=== PATIENT | male | born 1995 | race Caucasian/White ===

== ENCOUNTER 2021-04-02 13:06 | Emergency (ER) | payer BC ==
--- NOTE | 2021-04-02 13:41 | ER ---
Nurse's Notes [facility] Name: Hipolito Montiel Age: 25 yrs Sex: Male : 1995 Arrival Date: 04/02/2021 Time: 13:10 Bed 14 Private MD: Diagnosis: Rash and other nonspecific skin eruption-left hand and left upper arm Presentation: 04/02 13:15 Chief complaint: Patient states: Patient states he burned his left hand with hot coffee ae4 6 days prior and now he has a rash in various places on left hand and left arm. Coronavirus screen: Client denies travel out of the [place] in the last 14 days. At this time, the client does not indicate any symptoms associated with coronavirus-19. Ebola Screen: Patient negative for fever greater than or equal to 101.5 degrees Fahrenheit, and additional compatible Ebola Virus Disease symptoms No symptoms or risks identified at this time. Initial Sepsis Screen: Does the patient meet any 2 criteria? No. Patient's initial sepsis screen is negative. Does the patient have a suspected source of infection? No. Patient's initial sepsis screen is negative. Risk Assessment: Do you want to hurt yourself or someone else? Patient reports no desire to harm self or others. 13:15 Method Of Arrival: Ambulatory ae4 13:15 Acuity: DIOGO 4 ae4 Triage Assessment: 13:18 General: Appears in no apparent distress. comfortable, Behavior is calm, cooperative. ae4 Pain: Complains of pain in left hand and left arm Pain currently is 3 out of 10 on a pain scale. Neuro: Level of Consciousness is awake, alert, obeys commands. Respiratory: Airway is patent Respiratory effort is even, unlabored, Respiratory pattern is regular, symmetrical. Derm: Mild redness on all fingers of left hand. redness and small lesions on left upper arm, just superior to left elbow. Historical: - Allergies: 13:18 No Known Allergies; ae4 - Home Meds: 13:18 None [Active]; ae4 - PMHx: 13:18 None; ae4 - PSHx: 13:18 Hernia repair; ae4 - Immunization history:: Adult Immunizations Client reports receiving the 2nd dose of the Covid vaccine, Date received: March 12, 2021 Last tetanus immunization: unknown. - Social history:: Smoking status: Patient denies any tobacco usage or history of. Assessment: 13:53 Reassessment: Patient appears in no apparent distress at this time. see triage tr6 assessment. Vital Signs: 13:15 BP 156 / 97; Pulse 75; Resp 16; Temp 98(TE); Pulse Ox 98% on R/A; Weight 81.65 kg; ae4 Height 5 ft. 8 in. (172.72 cm); Pain 3/10; 13:21 BP 143 / 94; Pulse 81; Resp 17 S; Pulse Ox 98% ; ae4 13:15 Body Mass Index 27.37 (81.65 kg, 172.72 cm) ae4 ED Course: 13:10 Patient arrived in ED. ds1 13:18 Triage completed. ae4 13:22 Arm band placed on right wrist. ae4 13:25 Crispin Estrada PA is PHCP. cp 13:25 Ave Davis MD is Attending Physician. cp 13:53 Nayla Roberts RN is Primary Nurse. tr6 13:54 Patient has correct armband on for positive identification. Bed in low position. Call tr6 light in reach. Side rails up X 1. Administered Medications: No medications were administered Outcome: 13:41 Discharge ordered by MD. cp 13:54 Patient left the ED. tr6 Signatures: Morena Mora ds1 Crispin Estrada PA PA cp Angel Marquez RN RN ae4 Nayla Roberts, DAJA RN tr6
--- NOTE | 2021-04-02 13:41 | EDPHYS ---
Physician Documentation [facility] Name: Hipolito Montiel Age: 25 yrs Sex: Male : 1995 Arrival Date: 04/02/2021 Time: 13:10 Bed 14 Private MD: ED Physician Ave Davis HPI: 04/02 13:30 This 25 yrs old Male presents to ER via Ambulatory with complaints of Rash. cp 13:30 The patient's rash thought to be caused by an unknown cause. The rash is located on the cp left hand and left upper arm. Onset: The symptoms/episode began/occurred 3 day(s) ago. 13:30 Associated signs and symptoms: Pertinent negatives: difficulty breathing, fever, cp itching, intermittent burning. Historical: - Allergies: 13:18 No Known Allergies; ae4 - Home Meds: 13:18 None [Active]; ae4 - PMHx: 13:18 None; ae4 - PSHx: 13:18 Hernia repair; ae4 - Immunization history:: Adult Immunizations Client reports receiving the 2nd dose of the Covid vaccine, Date received: March 12, 2021 Last tetanus immunization: unknown. - Social history:: Smoking status: Patient denies any tobacco usage or history of. ROS: 13:35 Constitutional: Negative for body aches, chills, fever, poor PO intake. cp 13:35 Cardiovascular: Negative for chest pain. cp 13:35 Respiratory: Negative for cough, shortness of breath, wheezing. 13:35 Abdomen/GI: Negative for abdominal pain, nausea, vomiting, and diarrhea. 13:35 Skin: Positive for rash, of the left hand and left arm. 13:35 Neuro: Negative for altered mental status, headache, numbness. 13:35 All other systems are negative. Exam: 13:37 Constitutional: The patient appears in no acute distress, alert, awake, comfortable, cp non-toxic, well developed, well nourished. 13:37 Head/Face: Normocephalic, atraumatic. cp 13:37 Chest/axilla: Inspection: normal. 13:37 Cardiovascular: Rate: normal, Rhythm: regular. 13:37 Respiratory: the patient does not display signs of respiratory distress, Respirations: normal, no use of accessory muscles, no retractions, labored breathing, is not present. 13:37 Skin: rash can be described as nonspecific, on the left hand and lateral mid upper arm. Vital Signs: 13:15 BP 156 / 97; Pulse 75; Resp 16; Temp 98(TE); Pulse Ox 98% on R/A; Weight 81.65 kg; ae4 Height 5 ft. 8 in. (172.72 cm); Pain 3/10; 13:21 BP 143 / 94; Pulse 81; Resp 17 S; Pulse Ox 98% ; ae4 13:15 Body Mass Index 27.37 (81.65 kg, 172.72 cm) ae4 MDM: 13:29 Patient medically screened. cp 13:40 Data reviewed: vital signs, nurses notes. cp 13:40 Differential diagnosis: varicella, allergic reaction, cellulitis, abscess. Counseling: cp I had a detailed discussion with the patient and/or guardian regarding: the historical points, exam findings, and any diagnostic results supporting the discharge/admit diagnosis, to return to the emergency department if symptoms worsen or persist or if there are any questions or concerns that arise at home. Administered Medications: No medications were administered Disposition: 13:55 Chart complete. cp Disposition: 04/02/21 13:41 Discharged to Home. Impression: Rash and other nonspecific skin eruption - left hand and left upper arm. - Condition is Stable. - Discharge Instructions: Rash. - Medication Reconciliation Form, Thank You Letter, Antibiotic Education, Prescription Opioid Use form. - Follow up: Private Physician; When: 2 - 3 days; Reason: Worsening of condition. - Problem is new. - Symptoms are unchanged. Addendum: 04/06/2021 06:56 Co-signature as Attending Physician, Ave Davis MD. m a2 Signatures: Crispin Estrada PA PA cp Ave Davis MD MD ma2 Angel Marquez RN RN ae4 Nayla Roberts RN RN tr6 Corrections: (The following items were deleted from the chart) 04/02 13:54 13:41 04/02/2021 13:41 Discharged to Home. Impression: Rash and other nonspecific skin tr6 eruption - left hand and left upper arm. Condition is Stable. Forms are Medication Reconciliation Form, Thank You Letter, Antibiotic Education, Prescription Opioid Use. Follow up: Private Physician; When: 2 - 3 days; Reason: Worsening of condition. Problem is new. Symptoms are unchanged. cp
[2021-04-02 14:17] VITALS: TEMP 98; O2SAT 98
[2021-04-02 14:18] VITALS: BP 143/94
== END 2021-04-02 13:54 | disposition home or self-care (01) ==
LOC: ER 13:06
DX: R21 Rash and other nonspecific skin eruption (principal)
CPT/HCPCS: 99281